=== PATIENT | male | born 1985 | race Caucasian/White ===

== ENCOUNTER 2016-10-03 11:45 | Emergency (ER) | payer MEDICAID ==
[2016-10-03 11:51] VITALS: RESP 16
[2016-10-03 13:11] LABS: % IMMATURE GRANULYOCYTES 0.4 % (0.0-1.1); ABSOLUTE IMMATURE GRANULOCYTES 0.04 10^3/uL (0.00-0.10); ADD DIFF? NO; ADD MORPH? NO; ADD SCAN? NO; ATYPICAL LYMPHOCYTE FLAG 20 (0-99); FRAGMENT RBC FLAG 0 (0-99); HEMATOCRIT 45.4 % (40.0-51.0); HEMOGLOBIN 16.6 g/dL (13.7-17.5); LEFT SHIFT FLG 0 (0-99); LIPEMIA HEMOLYSIS FLAG 90 (0-99); MEAN CELL HEMOGLOBIN 33.5 pg (27.9-34.1); MEAN CELL HEMOGLOBIN CONCENTR. 36.6 g/dL (32.4-36.7); MEAN CELL VOLUME 91.7 fL (81.5-99.8); MEAN PLATELET VOLUME 8.8 fL (8.7-11.7); PLATELET CLUMPS FLAG 0 (0-99); PLATELET COUNT 283 10^3/uL (150-400); RED BLOOD CELL COUNT 4.95 10^6/uL (4.40-6.38); RED CELL DISTRIBUTION WIDTH 12.1 % (11.5-15.2)
[2016-10-03 13:27] LABS: ALANINE AMINOTRANSFERASE 63 IU/L (21-72); ALBUMIN 4.5 g/dL (3.5-5.0); ALKALINE PHOSPHATASE 51 IU/L (38-126); ANION GAP 12 mEq/L (8-16); ASPARTATE AMINOTRANSFERASE 37 IU/L (17-59); BILIRUBIN,TOTAL 0.7 mg/dL (0.1-1.4); BILIRUBIN-CONJUGATED 0.4 mg/dL (0.0-0.5); BILIRUBIN-UNCONJUGATED 0.3 mg/dL (0.0-1.1); CALCIUM 9.8 mg/dL (8.5-10.4); CARBON DIOXIDE 24 mEq/l (22-31); CHLORIDE 101 mEq/L (97-110); ETHANOL SERUM < 10 mg/dL (0-10); GLOMERULAR FILTRATION RATE > 60; GLUCOSE 96 mg/dL (70-100); MAGNESIUM 2.4 mg/dL (1.6-2.3); POTASSIUM 3.8 mEq/L (3.5-5.2); SALICYLATE < 1.0 mg/dL (2.0-20.0); SODIUM 137 mEq/L (134-144); TOTAL PROTEIN 7.2 g/dL (6.3-8.2)
--- NOTE | 2016-10-03 13:33 | EDPHY ---
H & P Stated Complaint: Wants Detox from alprazalam. experenceing hallucinations. Source: Patient, Family Exam Limitations: No limitations - Personal History Current Tetanus/Diphtheria Vaccine: Yes Current Tetanus Diphtheria and Acellular Pertussis (TDAP): Yes - Medical/Surgical History Hx Asthma: No Hx Chronic Respiratory Disease: No Hx Diabetes: No Hx Cardiac Disease: No Hx Renal Disease: No Hx Cirrhosis: No Hx Alcoholism: No Hx HIV/AIDS: No Hx Splenectomy or Spleen Trauma: No Other PMH: pmh:none. psh:none HPI/ROS: CHIEF COMPLAINT: Wants detoxification from alprazolam HISTORY OF PRESENT ILLNESS: Patient complains of alprazolam use and abuse for the past few years, and knows that he would like to detox from these at this time. He was originally prescribed these for anxiety and sleep, and he then developed a dependency and began abusing this. This was many months ago. Over the past 2 months this is become worse. He says that it is affecting his quality of life severely, that is ruling his life, that it affects ability to sleep. He says that he has tried several times to stop taking the medication, even going cold turkey for 4-5 days. He says the time that he does that he became is anxious, hallucinates and feels that he is about to have a seizure, thus he drinks alcohol. This has led to multiple problems as well including DUI. he denies any suicidal ideation or homicidal ideation. He is here voluntarily with his brother and is asking for help. PSYCHIATRIC DIAGNOSES: No formal diagnosis. Admits to alprazolam dependency and abuse PRIOR PSYCHIATRIC EVALUATIONS: None M1/DETAINER: No detainer. No M1 REVIEW OF SYSTEMS: Ten systems reviewed and are negative unless otherwise noted in the HPI EXAMINATION General Appearance: Alert, no distress, anxious Head: normocephalic, atraumatic Eyes: Pupils equal and round, no conjunctival pallor or injection ENT, Mouth: Mucous membranes moist Neck: Normal inspection, supple, non-tender Respiratory: Lungs are clear to auscultation. No wheezing, rhonchi or crackles Cardiovascular: Regular rate and rhythm. No murmur. Gastrointestinal: Abdomen is soft and nontender Back: non-tender, no bony abnormalities Neurological: A&O, nonfocal, normal gait Skin: Warm and dry, no rash Extremities: Nontender, no pedal edema Psychiatric: Anxious. Expresses remorse for his substance abuse and exhibits good insight to his illness. Not suicidal or homicidal. Cooperative demeanor. DIFFERENTIAL DIAGNOSES: Including but not limited to polysubstance abuse, benzodiazepine abuse, alcohol abuse, alcoholism, depression MDM: 1:20 p.m. Patient has dependency to alprazolam. He has been abusing this for quite some time. He has expressed remorse for this and wants greatly to be admitted for treatment for this. He says that it is ruining his life, affecting his quality of life in his sleep. He frequently has hallucinations and uses alcohol to prevent seizures. He is not suicidal. Not homicidal. He has a very well organized thought process and does express good insight to his illness. He does express that he is ready to complete treatment as he has had many poor decisions and outcomes in the past. I do feel that he would greatly benefit from admission to inpatient detoxification at this time. We have ordered laboratory studies to rule out any acute medical problem. He is resting comfortably in no acute distress with vital signs stable. 2:50 p.m. Laboratory studies test are all negative other than the known positive benzodiazepine from the urine drug screen. Jannette OLIVARES is attempting to send information to [facility] to discuss inpatient therapy. 3:30 p.m. Patient has been re-evaluated. He is resting comfortably in no acute distress. We are awaiting information from potential accepting facilities. 4:18 p.m. At this time patient is still awaiting response for inpatient care. He will be discharged from this facility in either scenario. They will require that he presents the by PO for intake evaluation, or he will be discharged home to explore his outpatient office. He is currently comfortable in no acute distress this time. 5:25 p.m. manager hospice has been notified that patient has been accepted at [facility]. He is accepted into their detox unit. Accepting MD is Dr. Hugh Malone. Dori provided name and number ([phone]) for RN to call and receive RN report. TOM Sosa RN aware and awaiting call. Pt and his brother notified and provided directions to [facility] at [facility]. Pt had signed and agreed to their guidelines, pt provided copy of signed guidelines and aware of not being allowed to have electronics. Pt agreeable, pleasant and appreciative of assistance with getting help. SUPERVISION: Patient was evaluated in conjunction with the supervising physician. Please see their note for details. (Broderick Wall) Constitutional: Initial Vital Signs Temperature (C) 97.7 F 10/03/16 11:47 Heart Rate 112 H 10/03/16 11:47 Respiratory Rate 16 10/03/16 11:47 Blood Pressure 125/65 H 10/03/16 11:47 O2 Sat (%) 94 10/03/16 11:47 O2 Delivery Mode Room Air Allergies/Adverse Reactions: No Known Allergies Allergy (Unverified 10/03/16 11:51) Home Medications: Medication Instructions Recorded ALPRAZolam 10/03/16 Medical Decision Making Other Provider: Patient has been accepted to [facility] for treatment. Will discharge with instructions to transfer per Jannette, Case Management. (Hayes Villanueva) - Data Points Laboratory Results: Laboratory Results 10/03/16 13:00 10/03/16 13:00 Departure - Departure Disposition: Home, Routine, Self-Care Clinical Impression: Polysubstance abuse Condition: Good Instructions: Benzodiazepine Abuse (ED), Polysubstance Abuse (ED) Referrals: Jamila Heard MD [Primary Care Provider] - As per Instructions
[2016-10-03 18:02] VITALS: BP 123/73; PULSE 69; TEMP 97.9; O2SAT 96
== END 2016-10-03 18:15 | disposition home or self-care (01) ==
DX: F19.10 Other psychoactive substance abuse, uncomplicated (principal)
CPT/HCPCS: 80305; G0480